=== PATIENT | female | born 2000 | race Caucasian/White ===

== ENCOUNTER 2019-02-27 18:29 | Emergency (ER) | payer BC, SELFPAY | END 2019-02-27 23:15 | disposition home or self-care (01) | PROVIDERS: Emergency Provider Physician Assistant; Family Provider Nurse Practitioner Family; Visit Provider Physician Assistant | DX: G43.011 Migraine without aura, intractable, with status migrainosus (principal) | CPT/HCPCS: 70450; 80053; 81003; 81025; 85025; 96361; 96374; 96375; 99284; J1100; J1885; J2765 ==

== ENCOUNTER 2021-05-24 08:50 | Outpatient (CLI) | payer BC, SELFPAY ==
--- NOTE | 2021-05-24 09:19 | CTR_ITS ---
PROCEDURE INFORMATION: Exam: CT Neck With Contrast Exam date and time: 05/24/2021 9:26 AM Age: 21 years old Clinical indication: Other: Lump beneath left ear with swelling x 1 day; Additional info: Left neck mass TECHNIQUE: Imaging protocol: Computed tomography images of the neck with contrast. Radiation optimization: All CT scans at this facility use at least one of these dose optimization techniques: automated exposure control; mA and/or kV adjustment per patient size (includes targeted exams where dose is matched to clinical indication); or iterative reconstruction. Contrast material: OMNI 300; Contrast volume: 95 ml; Contrast route: INTRAVENOUS (IV); COMPARISON: CT head wo con* [id number] 02/27/2019 7:15 PM RADIATION DOSE METRICS: Total DLP (mGy-cm): 279.59 FINDINGS: Nasopharynx: Unremarkable. Oropharynx: Unremarkable. No significant tonsillar enlargement. Hypopharynx: Unremarkable. Larynx: Unremarkable. Normal epiglottis. Retropharyngeal space: Unremarkable. Submandibular/Parotid glands: There is asymmetric enlargement and increased enhancement of the left parotid gland. No focal mass or fluid collection within the parotid. No sialolith. Thyroid: Normal. No enlarged or calcified nodules. Lymph nodes: There is a 9 mm short axis level 2 left jugular lymph node. No grossly enlarged lymph nodes. Trachea: Visualized trachea is unremarkable. Lungs: Unremarkable as visualized. Bones/joints: Unremarkable. No acute fracture. Soft tissues: There is left facial edema and traces of fluid extending the left facial and submandibular regions. There is thickening of the left platysma. No fluid collection. CT/CT neck w con* [id number] IMPRESSION: Acute left parotitis with left facial cellulitis.
[2021-05-24] MEDS: iohexol 300 mg/mL 100 mL Btl IV (09:28)
== END 2021-05-24 08:51 | disposition home or self-care (01) ==
PROVIDERS: PCP Nurse Practitioner Family; Visit Provider Specialist
DX: R22.1 Localized swelling, mass and lump, neck (principal); K11.21 Acute sialoadenitis; L03.211 Cellulitis of face
CPT/HCPCS: 70491